=== PATIENT | male | born 1960 | race Caucasian/White ===

== ENCOUNTER 2018-05-29 08:16 | Outpatient (CLI) | payer OTHER | END 2018-05-29 08:18 | disposition home or self-care (01) | LOC: SONOGRAMA 08:16 | DX: E04.2 Nontoxic multinodular goiter (principal) ==

== ENCOUNTER 2019-09-03 10:14 | Outpatient (CLI) | payer OTHER | END 2019-09-03 10:18 | disposition home or self-care (01) | LOC: SONOGRAMA 10:14 | PROVIDERS: ATTEND Pathology Anatomic Pathology | DX: E04.1 Nontoxic single thyroid nodule (principal) ==